=== PATIENT | male | born 1995 | race Two or more races ===

== ENCOUNTER 2018-10-04 19:06 | Emergency (ER) | payer SELFPAY ==
[~2018-10-04] VITALS: Ht 188 cm; Wt 111.1 kg
[2018-10-04 20:20] VITALS: BP 130/74
[2018-10-04] MEDS ORDERED: DexAMETHasone SOD PHOS 10MG/1ML VIAL INJ IM ONE (20:45)
[2018-10-04] MEDS ORDERED: cefTRIAXone SOD 1,000 MG VL IM ONE (20:45)
[2018-10-04] MEDS ORDERED: ACETAMINOPHEN/CODEINE#3 (300/30mg) TAB PO ONE (20:45)
== END 2018-10-04 21:10 | disposition home or self-care (01) ==
LOC: ER 19:06
DX: J06.9 Acute upper respiratory infection, unspecified (principal); R51 Headache; L70.9 Acne, unspecified
CPT/HCPCS: 96372; 99283; J0696; J1100

== ENCOUNTER 2019-04-05 00:07 | Emergency (ER) | payer SELFPAY ==
[~2019-04-05] VITALS: Ht 188 cm; Wt 104.3 kg
[2019-04-05 01:43] LABS: Basophils # (auto) 0 uL; Basophils % (auto) 0.5 % (0.0-2.0); Eosinophils # (auto) 0.1 uL; Eosinophils % (auto) 1.7 % (0.0-7.0); Hematocrit 41.6 % (41.0-53.0); Hemoglobin 14.3 g/dL (13.5-17.5); Lymphocytes # (auto) 2.2 uL; Lymphocytes % (auto) 25.6 % (10.0-50.0); Mean Corpuscular Hemoglobin 29.3 pg (28.0-32.0); Mean Corpuscular Hgb Conc. 34.5 g/dL (32.0-36.0); Mean Corpuscular Volume 84.9 fL (80.0-100.0); Monocytes # (auto) 0.6 uL; Monocytes % (auto) 6.9 % (0.0-12.0); Neutrophils # (auto) 5.7 uL; Neutrophils % (auto) 65.3 % (37.0-80.0); Nucleated Red Blood Cells % 0.1 %; Platelet Count (auto) 245 10^3/uL (140-450); Red Cell Distribution Width 14.1 % (11.8-14.3); White Blood Cell 8.7 10^3/uL (4.4-10.8)
[2019-04-05 01:59] LABS: INR 1.02 (0.9-1.15); Partial Thromboplastin Time 31.7 sec (23.64-32.05)
[2019-04-05 02:04] LABS: Alanine Aminotransferase 52 U/L (16-61); Albumin 4.2 g/dL (3.4-5.0); Anion Gap 6 (5-15); Aspartate Aminotransferase 127 U/L (15-37); BUN/Creatinine Ratio 17.9; Blood Urea Nitrogen 15 mg/dL (7-18); Calcium 9.1 mg/dL (8.5-10.1); Carbon Dioxide 26 mmol/L (21-32); Chloride 106 mmol/L (98-107); GFR African American 143 mL/min; GFR Non-African American 118 mL/min; Glucose 82 mg/dL (74-106); Magnesium 2.2 mg/dL (1.6-2.6); Potassium 3.9 mmol/L (3.5-5.1); Sodium 138 mmol/L (136-145)
[2019-04-05 02:12] LABS: Alkaline Phosphatase 64 U/L (45-117); Bilirubin, Total 0.6 mg/dL (0.2-1.0); Total Protein 8.2 g/dL (6.4-8.2)
[2019-04-05 04:01] VITALS: BP 118/71
== END 2019-04-05 04:08 | disposition left against medical advice (07) ==
LOC: ER 00:17
DX: R07.89 Other chest pain (principal); Z53.21 Procedure and treatment not carried out due to patient leaving prior to being seen by health care provider
CPT/HCPCS: 36415; 71045; 80053; 83735; 83880; 84443; 84484; 85025; 85610; 85730; 93005

== ENCOUNTER 2019-05-21 16:05 | Emergency (ER) | payer SELFPAY ==
[~2019-05-21] VITALS: Ht 188 cm; Wt 102.1 kg
[2019-05-21 16:32] VITALS: BP 126/76
== END 2019-05-21 16:48 | disposition home or self-care (01) ==
LOC: ER 16:07
DX: H66.93 Otitis media, unspecified, bilateral (principal); R42 Dizziness and giddiness

== ENCOUNTER 2019-05-24 20:36 | Emergency (ER) | payer SELFPAY ==
[~2019-05-24] VITALS: Ht 188 cm; Wt 104.3 kg
[2019-05-24 20:48] VITALS: BP 125/86
[2019-05-25] MEDS ORDERED: DexAMETHasone SOD PHOS 10MG/1ML VIAL INJ IM ONE
== END 2019-05-25 00:52 | disposition home or self-care (01) ==
LOC: ER 20:39
DX: H65.93 Unspecified nonsuppurative otitis media, bilateral (principal)
CPT/HCPCS: 96372; 99283; J1100

== ENCOUNTER 2019-06-21 18:07 | Emergency (ER) | payer SELFPAY ==
[~2019-06-21] VITALS: Ht 188 cm; Wt 98.9 kg
[2019-06-21 18:35] VITALS: BP 76/77
[2019-06-21] MEDS ORDERED: DexAMETHasone SOD PHOS 10MG/1ML VIAL INJ IM ONE (20:45)
[2019-06-21] MEDS ORDERED: ACETAMINOPHEN/CODEINE#3 (300/30mg) TAB PO ONE (20:45)
== END 2019-06-21 20:52 | disposition home or self-care (01) ==
LOC: ER 18:09
DX: T70.0XXA Otitic barotrauma, initial encounter (principal); H69.83 Other specified disorders of Eustachian tube, bilateral; X58.XXXA Exposure to other specified factors, initial encounter
CPT/HCPCS: 96372; 99283; J1100